=== PATIENT | female | born 1980 | race Caucasian/White ===

== ENCOUNTER 2020-07-21 09:35 | Outpatient (CLI) | payer SELFPAY ==
[~2020-07-21 09:35] MED LIST: IBUP-1222 PO; OXYC-302 PO
== END 2020-07-21 23:59 | disposition home or self-care (01) ==
LOC: CLISVCS 09:35
PROVIDERS: ATTEND Obstetrics & Gynecology
DX: Z02.9 Encounter for administrative examinations, unspecified (principal)

== ENCOUNTER 2020-07-25 05:34 | Inpatient (IN) | payer MEDICAID ==
[~2020-07-25] VITALS: Ht 162.6 cm; Wt 98.6 kg
[2020-07-25] MEDS ORDERED: NEWBORN KIT ONE (05:47)
[2020-07-25] MEDS ORDERED: AZITHROMYCIN 500 MG in SODIUM CHLORIDE 0.9% 250 ML IV ONE (06:00)
[2020-07-25] MEDS ORDERED: CEFAZOLIN PMX 1GM/50ML 50 ML IVPB ONE (06:00)
[2020-07-25] MEDS ORDERED: SODIUM CITRATE/CITRIC ACID 30 ML UDC PO ONE (06:00)
[2020-07-25] MEDS ORDERED: LACTATED RINGERS 1,000 ML IVBOLUS ONE (06:00)
[2020-07-25] MEDS ORDERED: CALCIUM CARBONATE 500 MG TAB.CHEW PO PRN ×2 (06:00→08:00)
[2020-07-25] MEDS ORDERED: METOCLOPRAMIDE 5 MG/ML, 2ML IV ONE (06:00)
[2020-07-25] MEDS ORDERED: ONDANSETRON 2MG/ML, 2ML IVPush ONE (06:00)
[2020-07-25 06:27] LABS: BASOPHILS % (AUTO) 1 % (0-1); EOSINOPHILS % (AUTO) 1 % (1-7); LYMPHOCYTES % (AUTO) 29 % (22-44); MEAN CORPUSCULAR HEMOGLOBIN 31.7 pg (27.0-34.8); MEAN CORPUSCULAR HGB CONC 34.3 g/dL (32.4-35.8); MEAN PLATELET VOLUME 11.5 fL (7.4-10.4); MONOCYTES % (AUTO) 9 % (2-9); NEUTROPHILS % (AUTO) 61 % (42-75); PLATELET COUNT 215 x10^3/uL (130-400); RED CELL DISTRIBUTION WIDTH 13.8 % (9.6-15.2)
[2020-07-25] MEDS ORDERED: METOCLOPRAMIDE 5 MG/ML, 2ML ONE (06:31)
[2020-07-25] MEDS ORDERED: SODIUM CITRATE/CITRIC ACID 15 ML UDC ONE (06:31)
[2020-07-25 06:36] LABS: MD NO
[2020-07-25 06:46] VITALS: BP 115/79
[2020-07-25] MEDS ORDERED: PREN1TAB60 PO (06:46)
[2020-07-25] MEDS ORDERED: FENTANYL PF 100 MCG/2ML ONE (07:00)
[2020-07-25] MEDS ORDERED: KETOROLAC 30 MG/1 ML ONE (07:04)
[2020-07-25] MEDS ORDERED: CEFAZOLIN 1,000 MG ONE ×2 (07:04)
[2020-07-25] MEDS ORDERED: OXYTOCIN 10 UNITS/ML, 1ML ONE ×4 (07:04)
[2020-07-25] MEDS ORDERED: EPHEDRINE 50 MG/ML, 1ML ONE (07:50)
[2020-07-25] MEDS ORDERED: PHENYLEPHRINE 10 MG/ML ONE (07:50)
[2020-07-25] MEDS ORDERED: MORPHINE SULFATE 4 MG/ML, 1ML IVPush PRN (08:00)
[2020-07-25] MEDS ORDERED: KETOROLAC 30 MG/1 ML IV PRN (08:00)
[2020-07-25] MEDS: LACTATED RINGERS 1,000 ML IV SCH ×4 (08:00→18:00)
[2020-07-25] MEDS ORDERED: ACETAMINOPHEN 325 MG TABLET PO PRN (08:00)
[2020-07-25] MEDS ORDERED: MISOPROSTOL 200 MCG TABLET PR PRN (08:00)
[2020-07-25] MEDS ORDERED: morphine SULFATE 10 MG/ML, 1ML IVPush PRN ×2 (08:00→09:00)
[2020-07-25] MEDS ORDERED: ONDANSETRON 2MG/ML, 2ML IV PRN (08:00)
[2020-07-25] MEDS ORDERED: METOCLOPRAMIDE 5 MG/ML, 2ML IV PRN (08:00)
[2020-07-25] MEDS ORDERED: METHYLERGONOVINE 0.2 MG/ML IM PRN (08:00)
[2020-07-25] MEDS: KETOROLAC 30 MG/1 ML IV SCH ×3 (08:00→20:06)
[2020-07-25] MEDS ORDERED: CALCIUM CHLORIDE 10%, 10ML SYR ONE (08:08)
[2020-07-25] MEDS ORDERED: EPHEDRINE 50 MG/ML, 1ML IVPush PRN (09:00)
[2020-07-25] MEDS ORDERED: OXYcodone 5 MG/5 ML ORAL.SOL UDC PO PRN (09:00)
[2020-07-25] MEDS ORDERED: ONDANSETRON 2MG/ML, 2ML IVPush PRN (09:00)
[2020-07-25] MEDS ORDERED: hydrALAzine 20 MG/ML, 1ML IV PRN (09:00)
[2020-07-25] MEDS ORDERED: FENTANYL PF 100 MCG/2ML IV PRN (09:00)
[2020-07-25] MEDS ORDERED: DIPHENHYDRAMINE 50 MG/ML, 1ML IVPush PRN (09:00)
[2020-07-25] MEDS ORDERED: OXYTOCIN 30U/ 0.9% NaCL 500ML 500 ML ONE (09:36)
[2020-07-25] MEDS: OXYTOCIN 30U/ 0.9% NaCL 500ML 500 ML IV SCH ×2 (09:41→18:00)
[2020-07-25 11:30] VITALS: BP 111/74
[2020-07-25] MEDS: OXYcodone/APAP 5/325MG TABLET PO PRN ×5 (11:54→23:58)
[2020-07-25] MEDS: MEPERIDINE/PF 50 MG/ML IVPush PRN ×2 (11:56→15:06)
[2020-07-25] MEDS: PRENATAL VIT/IRON/FA 1 EACH TABLET PO SCH (14:05)
[2020-07-25 16:00] VITALS: BP 127/78
[2020-07-25 16:18] LABS: BASOPHILS % (AUTO) 0 % (0-1); EOSINOPHILS % (AUTO) 0 % (1-7); LYMPHOCYTES % (AUTO) 20 % (22-44); MEAN CORPUSCULAR HEMOGLOBIN 31.6 pg (27.0-34.8); MEAN PLATELET VOLUME 11.8 fL (7.4-10.4); MONOCYTES % (AUTO) 7 % (2-9); NEUTROPHILS % (AUTO) 72 % (42-75); PLATELET COUNT 176 x10^3/uL (130-400); RED BLOOD COUNT 3.69 x10^6/uL (3.82-5.3); RED CELL DISTRIBUTION WIDTH 13.8 % (9.6-15.2)
[2020-07-25 16:22] LABS: MD NO
[2020-07-25] MEDS ORDERED: MEPERIDINE/PF 50 MG/ML IM PRN (18:30)
[2020-07-25 20:31] VITALS: BP 133/84
[2020-07-25 23:44] VITALS: BP 120/71
[2020-07-26] MEDS: KETOROLAC 30 MG/1 ML IV SCH ×4 (02:04→20:46)
[2020-07-26 04:00] VITALS: BP 124/78
[2020-07-26] MEDS: OXYcodone/APAP 5/325MG TABLET PO PRN ×3 (04:27→15:10)
[2020-07-26 07:20] VITALS: BP 115/73
[2020-07-26] MEDS: DOCUSATE 100 MG CAPSULE PO PRN (08:06)
[2020-07-26] MEDS: PRENATAL VIT/IRON/FA 1 EACH TABLET PO SCH (08:06)
[2020-07-26 11:30] VITALS: BP 128/77
[2020-07-26 19:46] VITALS: BP 106/71
[2020-07-27] MEDS: KETOROLAC 30 MG/1 ML IV SCH (02:32)
[2020-07-27] MEDS ORDERED: DOCU100C33 PO (06:32)
[2020-07-27] MEDS ORDERED: OXYcodone/APAP 5/325MG PO (06:32)
[2020-07-27] MEDS ORDERED: OXYC-302 PO ×2 (06:32→06:37)
[2020-07-27] MEDS ORDERED: IBUP-1222 PO (06:32)
[2020-07-27 07:20] VITALS: BP 122/86
[2020-07-27] MEDS: PRENATAL VIT/IRON/FA 1 EACH TABLET PO SCH (08:39)
[2020-07-27] MEDS: DOCUSATE 100 MG CAPSULE PO PRN (08:39)
[2020-07-27] MEDS: IBUPROFEN 600 MG TABLET PO PRN ×2 (08:39→15:20)
[2020-07-27] MEDS: SIMETHICONE 80 MG CHEW TAB PO PRN ×2 (08:39→15:20)
== END 2020-07-27 17:00 | disposition home or self-care (01) | DRG 785 ==
LOC: LDIP 05:34 → 2NW 10:55
PROVIDERS: ADMIT Obstetrics & Gynecology; ATTEND Obstetrics & Gynecology
PROC: 10D00Z1 Extraction of Products of Conception, Low, Open Approach (ICD-10-PCS; principal; 2020-07-25)
PROC: 0UB70ZZ Excision of Bilateral Fallopian Tubes, Open Approach (ICD-10-PCS; 2020-07-25)
DX: O34.211 Maternal care for low transverse scar from previous cesarean delivery (principal); Z20.822 Contact with and (suspected) exposure to COVID-19; Z3A.39 39 weeks gestation of pregnancy; Z37.0 Single live birth; Z30.2 Encounter for sterilization
CPT/HCPCS: 36415; 85025; 86592; 86850; 86900; 87635; 88302; G0378; J0690; J1885; J2175; J3010; J2370; J2590; J2765; J7120